=== PATIENT | female | born 1995 ===

== ENCOUNTER 2018-01-13 19:23 | Emergency (ER) | payer BC ==
[2018-01-13 19:38] VITALS: BP 154/97
--- NOTE | 2018-01-13 19:58 | UC ---
General HPI - HPI Summary HPI Summary: Was cuddling with cat today and noticed a tick attached to left arm. SHe has been indoors for the past 2 days had wisdom teeth removed 2 days ago. Denies chills, fever, itch at the site of tick - History of Current Complaint Chief Complaint: CAROLINkin Stated Complaint: TICK REMOVAL Time Seen by Provider: 01/13/18 19:42 Hx Obtained From: Patient Hx Last Menstrual Period: 01/11/18 Onset/Duration: Sudden Onset, Lasting Hours Onset Severity: Mild Current Severity: Mild Pain Intensity: 0 - Allergy/Home Medications Allergies/Adverse Reactions: Allergies Allergy/AdvReac Type Severity Reaction Status Date / Time No Known Allergies Allergy Verified 01/13/18 19:38 Home Medications: Home Medications Desogestrel-Ethinyl Estradiol [Enskyce 28 Tablet] 1 mg PO DAILY WITH MEAL [History Confirmed 01/13/18] PMH/Surg Hx/FS Hx/Imm Hx Previously Healthy: Yes - Surgical History Surgical History: None Surgery Procedure, Year, and Place: umbilical hernia surgery- 3yrs old. Tonsils - Social History Alcohol Use: Occasionally Substance Use Type: None Smoking Status (MU): Never Smoked Tobacco Review of Systems All Other Systems Reviewed And Are Negative: Yes Physical Exam Triage Information Reviewed: Yes Appearance: Well-Appearing, No Pain Distress, Well-Nourished Vital Signs: Initial Vital Signs Temp 98.9 F 01/13/18 19:35 Pulse 87 01/13/18 19:35 Resp 18 01/13/18 19:35 BP 154/97 01/13/18 19:35 Pulse Ox 99 01/13/18 19:35 Vital Signs Reviewed: Yes Eyes: Positive: Conjunctiva Clear ENT: Positive: Hearing grossly normal, Pharynx normal Neck: Positive: Supple, Nontender Respiratory: Positive: Chest non-tender Cardiovascular: Positive: Pulses Normal, Brisk Capillary Refill Abdomen Description: Positive: Nontender Bowel Sounds: Positive: Present Musculoskeletal Exam: Normal Skin Exam: Other - small tick attached to mid third of volar aspect left arm about 2mm in length Course/Dx - Course Course Of Treatment: tick removed with forceps completely, does not appear to be a deer tick. Alcohol applied to the site of the bite. Patient tolerated procedure well. BP elevated, monitor and f/u with PCP - Differential Dx - Multi-Symptom Provider Diagnoses: tick bite. elevated BP without diagnosis of HTN Discharge - Sign-Out/Discharge Documenting (check all that apply): Discharge/Admit/Transfer - Discharge Plan Condition: Good Disposition: HOME Patient Education Materials: Tick Bite (ED) Referrals: Senia Lockwood MD [Primary Care Provider] - - Billing Disposition and Condition Condition: GOOD Disposition: Home
== END 2018-01-13 19:50 | disposition home or self-care (01) ==
LOC: UCEAST 19:23
DX: S40.862A Insect bite (nonvenomous) of left upper arm, initial encounter (principal); R03.0 Elevated blood-pressure reading, without diagnosis of hypertension; W57.XXXA Bitten or stung by nonvenomous insect and other nonvenomous arthropods, initial encounter; Y92.9 Unspecified place or not applicable
CPT/HCPCS: 99211; G0463